=== PATIENT | female | born 1970 | race African-American/Black ===

== ENCOUNTER 2017-11-14 20:45 | Emergency (ER) | payer OTHER ==
[2017-11-15] MEDS: KETOROLAC 30 MG INJ IM (01:10)
== END 2017-11-15 02:05 | disposition home or self-care (01) ==
LOC: FTE 11-15 02:05
DX: S80.11XA Contusion of right lower leg, initial encounter (principal); S29.009A Unspecified injury of muscle and tendon of unspecified wall of thorax, initial encounter; R07.89 Other chest pain; Y08.89XA Assault by other specified means, initial encounter
CPT/HCPCS: 71010; 73590; 96372; 99284-25

== ENCOUNTER 2017-12-17 16:37 | Emergency (ER) | payer OTHER ==
[2017-12-17] MEDS: SOD CHLORIDE 0.9% 1,000 ML IV (19:45)
[2017-12-17] MEDS: ASPIRIN 325 MG TAB PO (19:48)
[2017-12-17] MEDS: KETOROLAC 30 MG INJ IV (20:06)
[2017-12-17] MEDS: NITROGLYCERIN (SL) 0.4 MG TAB SL (20:06)
[2017-12-17 20:20] LABS: ADD MAN DIFF? NO
[2017-12-17 20:22] LABS: BASOPHILS % 0.4 % (0.0-2.0); EOSINOPHILS % 0.6 % (0.0-7.0); HEMATOCRIT 36.4 % (37.0-47.0); HEMOGLOBIN 11.6 g/dl (12.0-16.0); LYMPHOCYTES # 1.8 10^3/ul (0.8-2.9); LYMPHOCYTES % 25.7 % (15.0-51.0); MEAN CORPUSCULAR HEMOGLOBIN 27.6 pg (29.0-33.0); MEAN CORPUSCULAR HGB CONC 31.9 g/dl (32.0-37.0); MEAN CORPUSCULAR VOLUME 86.7 fl (82.0-101.0); MEAN PLATELET VOLUME 9.3 fl (7.4-10.4); MONOCYTE # 0.4 10^3/ul (0.3-0.9); NEUTROPHIL # 4.8 10^3/ul (1.6-7.5); PLATELET COUNT 424 10^3/UL (140-415); RED CELL DISTRIBUTION WIDTH 15.2 % (11.5-14.5)
[2017-12-17 20:22] LABS: WHITE BLOOD COUNT 7.1 10^3/ul (4.8-10.8)
[2017-12-17 20:39] LABS: INR 0.98; PROTIME 13.1 Sec (11.9-14.9)
[2017-12-17 20:41] LABS: ALANINE AMINOTRANSFERASE 19 IU/L (13-69); ALBUMIN 4.2 g/dl (3.3-4.9); ALBUMIN/GLOBULIN RATIO 1.05; ALKALINE PHOSPHATASE 74 IU/L (42-121); ANION GAP 16 (8-16); ASPARTATE AMINO TRANSFERASE 16 IU/L (15-46); BLOOD UREA NITROGEN 6 mg/dl (7-20); CALCIUM 9.8 mg/dl (8.4-10.2); CARBON DIOXIDE 24 mmol/L (21-31); CHLORIDE 103 mmol/L (97-110); CREATINE KINASE 56 IU/L (23-200); CREATININE 0.66 mg/dl (0.44-1.00); GLUCOSE 123 mg/dl (70-220); LIPASE 49 U/L (23-300); POTASSIUM 3.5 mmol/L (3.5-5.1); SODIUM 139 mmol/L (135-144); TOTAL PROTEIN 8.2 g/dl (6.1-8.1)
[2017-12-17 20:54] LABS: B-TYPE NATRIURETIC PEPTIDE 32 PG/ML (0-125); CK INDEX 0.5
[2017-12-17 21:01] LABS: TROPONIN-I < 0.012 ng/ml (0.00-0.12)
== END 2017-12-17 21:46 | disposition home or self-care (01) ==
LOC: E/R 16:37
DX: M94.0 Chondrocostal junction syndrome [Tietze] (principal); R40.2252 Coma scale, best verbal response, oriented, at arrival to emergency department; R40.2142 Coma scale, eyes open, spontaneous, at arrival to emergency department; R40.2362 Coma scale, best motor response, obeys commands, at arrival to emergency department
CPT/HCPCS: 36415; 71045; 80053; 82550; 82553; 83690; 83880; 84484; 85025; 85610; 85730; 93005; 96374; 99285-25